=== PATIENT | female | born 1985 | race Two or more races ===

== ENCOUNTER 2018-08-15 19:52 | Observation (INO) | payer MEDICAID, OTHER ==
[2018-08-15 20:56] LABS: Urine Bacteria NONE SEEN /hpf (None Seen); Urine Blood 1+ /uL (Negative); Urine Specific Gravity 1.013 (1.001-1.035); Urine WBC <1 /hpf (0 - 5)
[2018-08-15 21:00] LABS: Amphetamine Screen, Urine POSITIVE (NEGATIVE); Barbiturate Scree,Urine NEGATIVE (NEGATIVE); Benzodiazephine Screen, Urine NEGATIVE (NEGATIVE); Cannabinoid Screen, Urine NEGATIVE (NEGATIVE); Cocaine Screen, Urine NEGATIVE (NEGATIVE); Opiate Scree,Urine NEGATIVE (NEGATIVE); Phencyclidine Screen, Urine NEGATIVE (NEGATIVE)
[2018-08-15] MEDS ORDERED: ENO40SY SC (22:03)
[2018-08-15] MEDS ORDERED: METR500T PO (22:07)
[2018-08-15] MEDS ORDERED: METO25TA62 PO (22:07)
[2018-08-15] MEDS ORDERED: DOCU-94 PO (22:07)
[2018-08-15] MEDS ORDERED: PREN-153 OR (22:07)
[2018-08-15] MEDS ORDERED: MAGN400T5 OR (22:07)
[2018-08-15] MEDS ORDERED: FAM20T PO (22:07)
== END 2018-08-15 21:15 | disposition home or self-care (01) | DRG 563 ==
LOC: LDRP 19:52
PROVIDERS: ADMIT Obstetrics & Gynecology; ATTEND Obstetrics & Gynecology
DX: O60.03 Preterm labor without delivery, third trimester (principal); O46.93 Antepartum hemorrhage, unspecified, third trimester; Z3A.34 34 weeks gestation of pregnancy
CPT/HCPCS: 59025; 80307; 81001; 81002; G0378

== ENCOUNTER 2019-07-22 16:41 | Emergency (ER) | payer MEDICAID, OTHER ==
[~2019-07-22] VITALS: Ht 167.6 cm; Wt 78.0 kg
[~2019-07-22 16:41] MED LIST: DOCU-94 PO; ENO40SY SC; FAM20T PO; MAGN400T5 OR; METO25TA62 PO; METR500T PO; PREN-153 OR
[2019-07-22 17:09] VITALS: BP 129/77
[2019-07-22 18:59] LABS: Basophils # (auto) 0.1 uL; Basophils % (auto) 0.7 % (0.0-2.0); Eosinophils # (auto) 0.3 uL; Eosinophils % (auto) 3.1 % (0.0-7.0); Hematocrit 43.7 % (36.0-46.0); Hemoglobin 15.1 g/dL (12.2-16.2); Lymphocytes # (auto) 2.7 uL; Lymphocytes % (auto) 28.3 % (10.0-50.0); Mean Corpuscular Hemoglobin 35.1 pg (28.0-32.0); Mean Corpuscular Hgb Conc. 34.6 g/dL (32.0-36.0); Mean Corpuscular Volume 101.6 fL (80.0-100.0); Monocytes # (auto) 0.6 uL; Monocytes % (auto) 5.9 % (0.0-12.0); Neutrophils # (auto) 5.9 uL; Nucleated Red Blood Cells % 0.1 %; Platelet Count (auto) 214 10^3/uL (140-450); Red Cell Distribution Width 13.1 % (11.8-14.3); White Blood Cell 9.5 10^3/uL (4.4-10.8)
[2019-07-22 19:14] LABS: Albumin 3.9 g/dL (3.4-5.0); Calcium 8.1 mg/dL (8.5-10.1); Potassium 3.6 mmol/L (3.5-5.1)
[2019-07-22 19:19] LABS: BUN/Creatinine Ratio 12.3; Bilirubin, Total 0.2 mg/dL (0.2-1.0); Total Protein 7.2 g/dL (6.4-8.2)
== END 2019-07-22 22:01 | disposition left against medical advice (07) ==
LOC: ER 16:41
DX: L03.114 Cellulitis of left upper limb (principal); Z53.21 Procedure and treatment not carried out due to patient leaving prior to being seen by health care provider
CPT/HCPCS: 36415; 80053; 83605; 85025; 87040

== ENCOUNTER 2023-11-29 10:25 | Emergency (ER) | payer MEDICAID ==
[~2023-11-29] VITALS: Ht 167.6 cm; Wt 84.7 kg
[~2023-11-29 10:25] MED LIST changes: -FAM20T PO; +FAMO20TA10 PO; +MAGN400T40 OR; -MAGN400T5 OR; -METO25TA62 PO; +METO25TA93 PO; -PREN-153 OR; +PREN1TAB71 OR
[2023-11-29 12:09] LABS: Urine Bacteria FEW /hpf (None Seen); Urine Blood Negative /uL (Negative); Urine Clarity Clear (Clear); Urine Protein, UAD Negative (Negative); Urine Specific Gravity 1.007 (1.001-1.035); Urine Urobilinogen Normal (Negative); Urine WBC <1 /hpf (0 - 5)
[2023-11-29 12:11] LABS: Urine Color Straw (Yellow)
[2023-11-29] MEDS ORDERED: CYCL-837 PO (14:21)
[2023-11-29] MEDS ORDERED: NAP500T PO (14:21)
[2023-11-29 14:40] VITALS: BP 116/80; PULSE 102; RESP 18; TEMP 98; O2SAT 97
[2023-11-29] MEDS: methylPREDNISolone SOD SUCC 125 MG/2 ML VL IM ONE (14:46)
== END 2023-11-29 14:50 | disposition home or self-care (01) ==
LOC: ER 10:25
DX: S33.5XXA Sprain of ligaments of lumbar spine, initial encounter (principal); X58.XXXA Exposure to other specified factors, initial encounter; Y93.89 Activity, other specified; Y92.89 Other specified places as the place of occurrence of the external cause; Y99.8 Other external cause status
CPT/HCPCS: 72100; 81001

== ENCOUNTER 2024-01-08 16:38 | Emergency (ER) | payer MEDICAID ==
[~2024-01-08] VITALS: Ht 167.6 cm; Wt 80.0 kg
[~2024-01-08 16:38] MED LIST changes: +CYCL-837 PO; +NAP500T PO
[2024-01-08] MEDS: DICYCLOMINE HCL (10MG/ML) 2 ML AMPULE IM ONE (18:11)
[2024-01-08 18:28] LABS: Chloride 102 mmol/L (98-107); Potassium 3.5 mmol/L (3.5-5.1); Sodium 135 mmol/L (136-145)
[2024-01-08 18:29] LABS: Anion Gap 7 (5-15); Carbon Dioxide 26 mmol/L (20-30)
[2024-01-08 18:30] LABS: Basophils # (auto) 0 10 ^3/uL (0-0.2); Basophils % (auto) 0.3 % (0.0-2.0); Eosinophils # (auto) 0 10 ^3/uL (0-0.8); Eosinophils % (auto) 0.4 % (0.0-7.0); Hematocrit 47.5 % (36.0-46.0); Hemoglobin 16.3 g/dL (12.2-16.2); Lymphocytes # (auto) 0.9 10 ^3/uL (0.4-5.4); Mean Corpuscular Hemoglobin 33.1 pg (28.0-32.0); Mean Corpuscular Hgb Conc. 34.4 g/dL (32.0-36.0); Mean Corpuscular Volume 96.1 fL (80.0-100.0); Monocytes # (auto) 0.5 10 ^3/uL (0-1.3); Neutrophils # (auto) 9.3 10 ^3/uL (1.6-8.6); Neutrophils % (auto) 86.3 % (37.0-80.0); Nucleated Red Blood Cells % 0.2 %; Red Blood Cells 4.94 10^6/uL (4.0-5.20); Red Cell Distribution Width 13.2 % (11.8-14.3); White Blood Cell 10.8 10^3/uL (4.4-10.8)
[2024-01-08 18:34] LABS: BUN/Creatinine Ratio 7.7 (10.0-20.0); Blood Urea Nitrogen 6 mg/dL (9-23); Glucose 108 mg/dL (74-106); Lipase 31 U/L (12-53)
[2024-01-08 22:27] VITALS: O2SAT 98
[2024-01-08 22:30] VITALS: BP 109/72; PULSE 106; RESP 14; TEMP 98; O2SAT 96
[2024-01-08] MEDS ORDERED: ACET500T58 PO (23:44)
[2024-01-08] MEDS ORDERED: DICY10CA PO (23:44)
[2024-01-08] MEDS ORDERED: PHENSUP38 PR (23:47)
== END 2024-01-09 00:16 | disposition home or self-care (01) ==
LOC: EDBD 16:38 → ER 16:38
DX: A08.4 Viral intestinal infection, unspecified (principal); R10.2 Pelvic and perineal pain; K64.9 Unspecified hemorrhoids; Z79.899 Other long term (current) drug therapy
CPT/HCPCS: 36415; 74176; 76705; 80048; 83690; 84702; 85025; 96372; 99285; J0500